=== PATIENT | female | born 1965 | race Caucasian/White ===

== ENCOUNTER 2017-05-06 21:04 | Emergency (ER) | payer OTHER ==
[~2017-05-06] VITALS: Ht 170.2 cm; Wt 97.0 kg
[~2017-05-06 21:04] MED LIST: CEPHALEXIN500 MG PO; FLONASE NASAL50 MCG; ROBITUSSIN AC10 ML PO; ZITHROMAX250 MG PO
[2017-05-06] MEDS ORDERED: TOPROL XL100 MG PO (21:21)
[2017-05-06] MEDS ORDERED: PAROXETINE10 MG PO (21:22)
[2017-05-06 21:33] LABS: URINE BILIRUBIN - DIPSTICK NEGATIVE (NEGATIVE); URINE BLOOD DIPSTICK SMALL (NEGATIVE); URINE CLARITY CLOUDY; URINE COLOR YELLOW; URINE GLUCOSE - DIPSTICK NEGATIVE (NEGATIVE); URINE KETONE NEGATIVE (NEGATIVE); URINE LEUK ESTERASE NEGATIVE (NEGATIVE); URINE NITRITE - DIPSTICK NEGATIVE (Negative); URINE PROTEIN - DIPSTICK NEGATIVE (NEG-TRACE); URINE SPECIFIC GRAVITY 1.025; URINE UROBILINOGEN - DIPSTICK 0.2 E.U./dL (0.2)
[2017-05-06 21:34] LABS: HEMATOCRIT 42.3 % (37.0-47.0); HEMOGLOBIN 14.2 g/dl (12.0-16.0); IMMATURE GRANULOCYTES 0.3 % (0.0-1.0); MEAN CELL VOLUME 92.2 fL CALC (80.0-100.0); MEAN CORPUSCULAR HGB 30.9 pG CALC (26.0-32.0); MEAN CORPUSCULAR HGB CONC 33.6 g/L CALC (32.0-36.0); NEUT# 4.88 thou/uL (2.00-7.15); RED BLOOD COUNT 4.59 mill/uL (4.20-5.60); RED CELL DISTRI WIDTH 13.2 % (11.5-15.5)
[2017-05-06 21:42] LABS: URINE BACTERIA FEW hpf; URINE MUCUS MODERATE hpf (NONE-FEW); URINE SQUAMOUS EPITHELIAL CELL MANY EPI/hpf (0-FEW)
[2017-05-06 21:43] LABS: ALBUMIN 4.6 g/dL (3.2-5.0); ALKALINE PHOSPHATASE 83 u/l (38-126); AMYLASE 61 u/l (30-110); ANION GAP 14 (6-22 (CALC)); BILIRUBIN, TOTAL 0.6 mg/dL (0.0-1.4); BUN 14 mg/dL (7-17); BUN/CREATININE RATIO 24 (12-20 (CALC)); CALCIUM 9.2 mg/dL (8.4-10.2); CARBON DIOXIDE 25 mmol/l (22-30); CHLORIDE 106 mmol/l (95-108); CREATININE 0.6 mg/dL (0.5-1.0); GFR > 60 ML/MIN (>=60 (CALC)); GFR FOR AFR.AMER. > 60 ML/MIN (>=60 (CALC)); GLUCOSE 86 mg/dL (65-105); LIPASE 82 u/l (23-300); POTASSIUM 4.1 mmol/l (3.5-5.1); SGOT/AST 55 u/l (14-36); SGPT/ALT 76 u/l (9-52); SODIUM 140 mmol/l (137-146); TOTAL PROTEIN 7.7 g/dL (6.3-8.2)
[2017-05-06 23:55] VITALS: BP 181/99
== END 2017-05-06 23:55 | disposition left against medical advice (07) | DRG 392 ==
LOC: ED 21:04
PROVIDERS: Emergency Medicine
DX: R10.31 Right lower quadrant pain (principal); K62.5 Hemorrhage of anus and rectum; R11.2 Nausea with vomiting, unspecified; R19.7 Diarrhea, unspecified
CPT/HCPCS: S0164

== ENCOUNTER 2018-12-15 05:20 | Observation (INO) | payer OTHER ==
[~2018-12-15] VITALS: Ht 170.2 cm; Wt 92.0 kg
[~2018-12-15 05:20] MED LIST changes: +PAROXETINE10 MG PO; +TOPROL XL100 MG PO
[2018-12-15 06:26] LABS: HEMATOCRIT 45.2 % (37.0-47.0); HEMOGLOBIN 15.1 g/dl (12.0-16.0); IMMATURE GRANULOCYTES 0.6 % (0.0-5.0); MEAN CELL VOLUME 92.4 fL CALC (80.0-100.0); MEAN CORPUSCULAR HGB 30.9 pG CALC (26.0-32.0); MEAN CORPUSCULAR HGB CONC 33.4 g/L CALC (32.0-36.0); NEUT# 10.5 thou/uL (2.00-7.15); RED BLOOD COUNT 4.89 mill/uL (4.20-5.60); RED CELL DISTRI WIDTH 13.2 % (11.5-15.5)
[2018-12-15 06:28] LABS: URINE BILIRUBIN - DIPSTICK NEGATIVE (NEGATIVE); URINE BLOOD DIPSTICK SMALL (NEGATIVE); URINE COLOR YELLOW; URINE GLUCOSE - DIPSTICK NEGATIVE (NEGATIVE); URINE KETONE NEGATIVE (NEGATIVE); URINE LEUK ESTERASE NEGATIVE (NEGATIVE); URINE NITRITE - DIPSTICK NEGATIVE (Negative); URINE PROTEIN - DIPSTICK NEGATIVE (NEG-TRACE); URINE SPECIFIC GRAVITY >=1.030; URINE UROBILINOGEN - DIPSTICK 0.2 E.U./dL (0.2)
[2018-12-15] MEDS ORDERED: ADDERALL XR25 MG PO (06:36)
[2018-12-15 06:37] LABS: ALBUMIN 4.7 g/dL (3.2-5.0); ALKALINE PHOSPHATASE 83 u/l (38-126); AMYLASE 62 u/l (30-110); ANION GAP 16 (6-22 (CALC)); BILIRUBIN, TOTAL 0.6 mg/dL (0.0-1.4); BUN 21 mg/dL (7-17); BUN/CREATININE RATIO 40 (12-20 (CALC)); CARBON DIOXIDE 25 mmol/l (22-30); CHLORIDE 104 mmol/l (95-108); CREATININE 0.5 mg/dL (0.5-1.0); GFR > 60 ML/MIN (>=60 (CALC)); GFR FOR AFR.AMER. > 60 ML/MIN (>=60 (CALC)); LIPASE 72 u/l (23-300); POTASSIUM 4.4 mmol/l (3.5-5.1); SGOT/AST 26 u/l (14-36); SODIUM 141 mmol/l (137-146); TOTAL PROTEIN 7.8 g/dL (6.3-8.2)
[2018-12-15 06:43] LABS: URINE BACTERIA MODERATE hpf; URINE SQUAMOUS EPITHELIAL CELL FEW EPI/hpf (0-FEW)
--- NOTE | 2018-12-15 06:56 | NUR ---
REPORT TO SAMY SANTIAGO. AT BEDSIDE. PT SLEEPING
--- NOTE | 2018-12-15 07:10 | NUR ---
pt returned from ct advised of wait time for results. reports reduced pain. iv site healthy. no n/v.
--- NOTE | 2018-12-15 08:37 | NUR ---
pt drinking gastrograffin. aware of pending admission. iv abt infusing.
--- NOTE | 2018-12-15 08:50 | NUR ---
REPORT PROVIDED TO DEYSI APARICIO. PT TO [place] VIA STRETCHER. IV SITE HEALTHY. DENIES N/V. LAST BM YESTERDAY NORMAL PER PT.
--- NOTE | 2018-12-15 08:54 | NUR ---
PT ARRIVED TO [facility] VIA STRETCHER AT 0954. PT ALERT AND ORIENTED X3, NO SIGNS OF DISTRESS NOTED, RESP EVEN AND UNLABORED. PT AMBULATED TO STANDING SCALE, ORIENTED PT TO ROOM AND CALL LIGHT. DISCUSSED POC, VERBALIZED UNDERSTANDING. PT DRANK GASTROGRAFIN DUE AT THIS TIME. ADMISSION ASSESSMENT COMPLETED AT THIS TIME. CALL LIGHT IN REACH,CONTINUE TO MONITOR.
--- NOTE | 2018-12-15 09:20 | NUR ---
PT DRANK SECOND GASTROGRAFIN TOLERATED WELL, DENIES NAUSEA OR VOMITTING. CALL LIGHT IN REACH,CONTINUE TO MONITOR.
--- NOTE | 2018-12-15 10:00 | NUR ---
LAST GASTROGRAFIN DRANK AT THIS TIME, PT TOLERATED WELL. CALL MADE TO RADIOLOGY, PT TO BE TAKEN AT 1100, CALL LIGHT IN REACH,CONTINUE TO MONITOR.
--- NOTE | 2018-12-15 11:45 | NUR ---
PT TAKEN DOWN TO RADIOLOGY FOR CT, CONTINUE TO MONITOR.
--- NOTE | 2018-12-15 12:00 | NUR ---
PT RETURNED FROM RADIOLOGY, NO SIGNS OF DISTRESS NOTED, RESP EVEN AND UNLABORED. RESTARTED IVF, VOICES NO NEEDS OR COMPLAINTS AT THIS TIME, CALL LIGHT IN REACH,CONTINUE TO MONITOR.
--- NOTE | 2018-12-15 14:00 | NUR ---
PT HAD A BM, INFORMED TAMIE AND , BOTH STATE IF PT CAN EAT AND TOLERATE IT, SHE COULD BE DISCHARGED. DISCUSSED WITH PT, PT PROVIDED A SANDWICH. CALL LIGHT IN REACH,CONTINUE TO MONITOR.
[2018-12-15 15:40] VITALS: BP 109/63
--- NOTE | 2018-12-15 16:30 | NUR ---
DINNER PROVIDED, PT TOLERATED WELL, CLINICAL RESEARCH MANAGER TO REEVALUATE AND PT POSSIBLY TO BE DISCHARGED. PT VERBALIZED UNDERSTANDING. CONTINUE TO MONITOR.
[2018-12-15] MEDS ORDERED: MIRALAX3350 N1 PO (17:46)
[2018-12-15] MEDS ORDERED: KEFLEX500 M1 PO (17:53)
--- NOTE | 2018-12-15 18:25 | NUR ---
DISCUSSED DISCHARGE INSTRUCTIONS, PT GIVEN PRESCRIPTIONS AND DISCUSSED WITH PT, VERBALIZED UNDERSTANDING. IV SITE REMOVED, CATHETER INTACT.
--- NOTE | 2018-12-15 18:28 | NUR ---
Discharge instructions given. Patient verbalizes understanding of same. Discharged in stable condition via Ambulatory to Home with spouse. All belongings sent with pt.
== END 2018-12-15 18:26 | disposition home or self-care (01) | DRG 392 ==
LOC: ED 05:20 → ED-I 07:02 → ED 08:06 → MS2 08:07
PROVIDERS: Emergency Medicine; ADMIT Internal Medicine Nephrology; ATTEND Internal Medicine Nephrology
DX: K59.00 Constipation, unspecified (principal); N39.0 Urinary tract infection, site not specified; I10 Essential (primary) hypertension; F41.9 Anxiety disorder, unspecified; F90.9 Attention-deficit hyperactivity disorder, unspecified type
CPT/HCPCS: G0378; Q9967